=== PATIENT | male | born 1995 | race Caucasian/White ===

== ENCOUNTER 2019-01-20 11:14 | Emergency (ER) | payer BC ==
[~2019-01-20] VITALS: Ht 175.3 cm; Wt 80.5 kg
[2019-01-20 11:48] VITALS: Ht 175.3 cm; Wt 80.5 kg
[2019-01-20 14:45] VITALS: BP 150/96
== END 2019-01-20 14:45 | disposition home or self-care (01) ==
LOC: ED 11:14
DX: B99.8 Other infectious disease (principal); L08.9 Local infection of the skin and subcutaneous tissue, unspecified